=== PATIENT | male | born 1960 | race Caucasian/White ===

== ENCOUNTER 2017-01-07 10:28 | Emergency (ER) | payer SELFPAY ==
[~2017-01-07] VITALS: Ht 185.4 cm; Wt 83.9 kg
[2017-01-08] MEDS ORDERED: DEPAKOTE250 MG PO (16:41)
== END 2017-01-07 11:25 | disposition home or self-care (01) ==
LOC: ED 10:28
DX: Z00.8 Encounter for other general examination (principal)

== ENCOUNTER 2017-01-08 16:17 | Emergency (ER) | payer SELFPAY ==
[~2017-01-08] VITALS: Ht 185.4 cm; Wt 83.9 kg
[2017-01-08] MEDS ORDERED: DEPAKOTE250 MG PO (16:41)
== END 2017-01-08 16:51 | disposition home or self-care (01) ==
LOC: ED 16:17
DX: Z76.0 Encounter for issue of repeat prescription (principal); F17.200 Nicotine dependence, unspecified, uncomplicated; Z98.890 Other specified postprocedural states
CPT/HCPCS: 99283